=== PATIENT | male | born 1970 | race Caucasian/White ===

== ENCOUNTER 2020-11-18 22:16 | Inpatient (IN) | payer OTHER ==
[~2020-11-18] VITALS: Ht 198.1 cm; Wt 102.0 kg
[~2020-11-18 22:16] MED LIST: ARTANE 2MG TABLE2 MG PO; DIASTAT 2.5 MG2.5 MG PR; IBUPROFEN800 MG PO; ZOFRAN ODT4 MG PO
[2020-11-18 22:41] LABS: HEMOGLOBIN 15.4 gm/dl (14.0-17.5); RED BLOOD COUNT 4.64 M/UL (4.20-5.50); WHITE BLOOD COUNT 7.9 K/UL (4.5-11.0)
[2020-11-18 23:03] LABS: BUN/CREATININE RATIO 17 (0-10)
--- NOTE | 2020-11-19 08:44 | NUR ---
0854 - CALLED CONSULT TO DR. BARTHOLOMEW
[2020-11-19] MEDS ORDERED: IBUPROFEN200 MG PO (15:40)
[2020-11-19 19:52] LABS: HEMOGLOBIN 16.2 gm/dl (14.0-17.5); RED BLOOD COUNT 4.79 M/UL (4.20-5.50); WHITE BLOOD COUNT 7.4 K/UL (4.5-11.0)
[2020-11-19 20:21] LABS: BUN/CREATININE RATIO 14 (0-10)
[2020-11-20 03:56] LABS: RED BLOOD COUNT 4.56 M/UL (4.20-5.50); WHITE BLOOD COUNT 8.5 K/UL (4.5-11.0)
[2020-11-20 04:32] LABS: BUN/CREATININE RATIO 19 (0-10)
[2020-11-20] MEDS ORDERED: BRILINTA 90 MG90 MG PO (10:15)
[2020-11-20] MEDS ORDERED: LISINOPRIL5 MG PO (10:15)
[2020-11-20] MEDS ORDERED: ASPIRIN EC81 MG PO (10:15)
[2020-11-20] MEDS ORDERED: ATORVASTATIN CA20 MG PO (10:15)
[2020-11-20] MEDS ORDERED: LOPRESSOR 25 MG25 MG PO (10:15)
== END 2020-11-20 16:52 | disposition home or self-care (01) | DRG 247 ==
LOC: ER1 22:16 → PROG CARE 23:45 → CDU 23:45 → PROG CARE 11-19 03:32
PROVIDERS: Internal Medicine; Internal Medicine Interventional Cardiology; ADMIT Internal Medicine
PROC: B24BZZ4 Ultrasonography of Heart with Aorta, Transesophageal (ICD-10-PCS; 2020-11-18)
PROC: 027035Z Dilation of Coronary Artery, One Artery with Two Drug-eluting Intraluminal Devices, Percutaneous Approach (ICD-10-PCS; principal; 2020-11-19)
PROC: 4A023N7 Measurement of Cardiac Sampling and Pressure, Left Heart, Percutaneous Approach (ICD-10-PCS; 2020-11-19)
PROC: B2111ZZ Fluoroscopy of Multiple Coronary Arteries using Low Osmolar Contrast (ICD-10-PCS; 2020-11-19)
DX: I21.4 Non-ST elevation (NSTEMI) myocardial infarction (principal); I50.22 Chronic systolic (congestive) heart failure; G89.29 Other chronic pain; E78.5 Hyperlipidemia, unspecified; F17.210 Nicotine dependence, cigarettes, uncomplicated; Z20.822 Contact with and (suspected) exposure to COVID-19; J43.9 Emphysema, unspecified; G40.909 Epilepsy, unspecified, not intractable, without status epilepticus; I25.5 Ischemic cardiomyopathy; M54.9 Dorsalgia, unspecified; M47.896 Other spondylosis, lumbar region; I11.0 Hypertensive heart disease with heart failure; Z79.82 Long term (current) use of aspirin; Z79.01 Long term (current) use of anticoagulants; Z82.49 Family history of ischemic heart disease and other diseases of the circulatory system; Z88.6 Allergy status to analgesic agent
CPT/HCPCS: ECHO; 36415; 71046; 80048; 80053; 80061; 80307; 81001; 82550; 82553; 82962; 83735; 83874; 84484; 85025; 85027; 85347; 85610; 85730; 93005; 93306; 97161; 99152; 99153; 99285; C1725; C1769; C1874; C1887; C9600; J1170; J1644; J2250; J2550; J2930; J3010; J3246; J7040; Q9967; U0002

== ENCOUNTER 2020-12-05 15:12 | Observation (INO) | payer OTHER ==
[~2020-12-05] VITALS: Ht 198.1 cm; Wt 102.1 kg
[~2020-12-05 15:12] MED LIST changes: +ASPIRIN EC81 MG PO; +ATORVASTATIN CA20 MG PO; +BRILINTA 90 MG90 MG PO; +IBUPROFEN200 MG PO; +LISINOPRIL5 MG PO; +LOPRESSOR 25 MG25 MG PO
[2020-12-05 16:39] LABS: HEMOGLOBIN 14.3 gm/dl (14.0-17.5); RED BLOOD COUNT 4.25 M/UL (4.20-5.50); WHITE BLOOD COUNT 6.5 K/UL (4.5-11.0)
[2020-12-05 17:06] LABS: BUN/CREATININE RATIO 15 (0-10)
[2020-12-05] MEDS ORDERED: VENTOLIN HFA 66.7 GM INH (18:47)
[2020-12-05] MEDS ORDERED: NITROGLYCERIN0.4 MG SL (18:49)
--- NOTE | 2020-12-05 23:47 | NUR ---
AT 2240 ON 12/05/20, GINETTE MURRIETA RN AND [place] RAE RN DOUBLE VERIFIED THAT PT WISHES TO BE A FULL CODE. MADE AWARE, STATED "OKAY TO CHANGE IN SYSTEM." WCTM
[2020-12-06 02:23] LABS: HEMOGLOBIN 13.9 gm/dl (14.0-17.5); RED BLOOD COUNT 4.13 M/UL (4.20-5.50); WHITE BLOOD COUNT 7.5 K/UL (4.5-11.0)
[2020-12-06 07:03] LABS: HEMOGLOBIN 13.8 gm/dl (14.0-17.5); RED BLOOD COUNT 4.16 M/UL (4.20-5.50); WHITE BLOOD COUNT 7.1 K/UL (4.5-11.0)
[2020-12-06 07:42] LABS: BUN/CREATININE RATIO 18 (0-10)
--- NOTE | 2020-12-06 09:42 | NUR ---
PATIENT VOMITED X1, NOTIFIED DR. WEST. SHE WILL ENTER ORDERS IN [facility].
[2020-12-06] MEDS ORDERED: TYLENOL W/CODEIN1 E2 GT (12:18)
[2020-12-06] MEDS ORDERED: ZOFRAN ODT 4 MG4 MG GT (12:18)
[2020-12-06] MEDS ORDERED: PLAVIX 75 MG TA75 MG PO (18:14)
== END 2020-12-06 18:25 | disposition home or self-care (01) ==
LOC: ER1 15:12 → CDU 17:38 → M/S 22:04
PROVIDERS: Emergency Medicine; Internal Medicine; ADMIT Internal Medicine
DX: R07.89 Other chest pain (principal); I25.10 Atherosclerotic heart disease of native coronary artery without angina pectoris; I11.0 Hypertensive heart disease with heart failure; I50.20 Unspecified systolic (congestive) heart failure; E78.5 Hyperlipidemia, unspecified; I25.5 Ischemic cardiomyopathy; F17.210 Nicotine dependence, cigarettes, uncomplicated; I25.2 Old myocardial infarction; J44.9 Chronic obstructive pulmonary disease, unspecified; Z95.5 Presence of coronary angioplasty implant and graft; Z79.82 Long term (current) use of aspirin; Z79.899 Other long term (current) drug therapy; Z82.49 Family history of ischemic heart disease and other diseases of the circulatory system; Z20.822 Contact with and (suspected) exposure to COVID-19
CPT/HCPCS: 36415; 71045; 80048; 80053; 82550; 82553; 83735; 83874; 84484; 85025; 85027; 85610; 85730; 93005; 93971; 94664; 94760; 96372; 99285; G0378; J1644; J1650; J2270; U0002

== ENCOUNTER → 2021-01-01 | Outpatient (CLI) | payer OTHER ==
[~2021-01-01] MED LIST changes: +NITROGLYCERIN0.4 MG SL; +PLAVIX 75 MG TA75 MG PO; +TYLENOL W/CODEIN1 E2 GT; +VENTOLIN HFA 66.7 GM INH; +ZOFRAN ODT 4 MG4 MG GT
== END ==
LOC: KOH-I 11:03
DX: M47.22 Other spondylosis with radiculopathy, cervical region (principal)
CPT/HCPCS: 72040

== ENCOUNTER → 2021-01-15 | Outpatient (CLI) | payer OTHER | LOC: HEART 5 14:47 | DX: R06.02 Shortness of breath (principal) | CPT/HCPCS: 94010 ==

== ENCOUNTER → 2021-03-05 | Outpatient (CLI) | payer OTHER | LOC: KOH-I 09:47 | DX: M50.123 Cervical disc disorder at C6-C7 level with radiculopathy (principal); M47.23 Other spondylosis with radiculopathy, cervicothoracic region; M48.02 Spinal stenosis, cervical region | CPT/HCPCS: 72141 ==

== ENCOUNTER → 2021-06-14 | Outpatient (CLI) | payer OTHER | LOC: KOH-I 09:00 | DX: M48.02 Spinal stenosis, cervical region (principal); M50.322 Other cervical disc degeneration at C5-C6 level | CPT/HCPCS: 72125 ==

== ENCOUNTER → 2021-12-31 | Outpatient (CLI) | payer OTHER | LOC: HEART 5 12-05 13:30 → ECHO 11:58 | DX: I25.10 Atherosclerotic heart disease of native coronary artery without angina pectoris (principal); I07.1 Rheumatic tricuspid insufficiency | CPT/HCPCS: ECHO; 93306 ==

== ENCOUNTER → 2022-01-29 | Outpatient (CLI) | payer OTHER | LOC: KOH-I 13:26 | DX: M47.22 Other spondylosis with radiculopathy, cervical region (principal); M48.02 Spinal stenosis, cervical region | CPT/HCPCS: 72141 ==

== ENCOUNTER → 2022-02-10 | Outpatient (CLI) | payer OTHER ==
[~2022-02-10] MED LIST changes: +GABAPENTIN800 MG PO; +HYDROCODON-ACE1 EAC6 PO; +KLONOPIN1 MG PO; +VOLTAREN ARTHRI20 GM TOP
[2022-02-10 11:50] LABS: HEMOGLOBIN 14.4 gm/dl (14.0-17.5); RED BLOOD COUNT 4.24 M/UL (4.20-5.50); WHITE BLOOD COUNT 6.9 K/UL (4.5-11.0)
[2022-02-10 12:24] LABS: BUN/CREATININE RATIO 14 (0-10)
== END ==
LOC: OPSV2 10:00 → EDSTATUS 10:00 → OPSV2 11:00
PROVIDERS: Orthopaedic Surgery
DX: Z01.818 Encounter for other preprocedural examination (principal); M54.12 Radiculopathy, cervical region
CPT/HCPCS: 71046; 80048; 81001; 85027; 87081; 93005

== ENCOUNTER → 2022-02-23 | Outpatient (CLI) | payer OTHER ==
[~2022-02-23] MED LIST changes: +CRESTOR20 MG PO; +PLAVIX75 MG PO; +PROTONIX40 MG PO; +PROZAC20 MG PO; +ROXICODONE TAB 55 MG PO; +STIMULANT LAXA1 EACH PO
[2022-02-23 13:31] LABS: BUN/CREATININE RATIO 16 (0-10)
== END ==
LOC: LAB 12:47
PROVIDERS: Orthopaedic Surgery
DX: Z01.812 Encounter for preprocedural laboratory examination (principal); M54.12 Radiculopathy, cervical region
CPT/HCPCS: 36415; 80048; 85610; 85730; 86850; 86900; 86901

== ENCOUNTER 2022-02-24 05:40 | Day surgery (SDC) | payer OTHER ==
[~2022-02-24] VITALS: Ht 200.7 cm; Wt 93.0 kg
[~2022-02-24 05:40] MED LIST changes: -CRESTOR20 MG PO; -PLAVIX75 MG PO; -PROTONIX40 MG PO; -PROZAC20 MG PO; -ROXICODONE TAB 55 MG PO; -STIMULANT LAXA1 EACH PO
[2022-02-24 13:55] LABS: HEMOGLOBIN 12.5 gm/dl (14.0-17.5); RED BLOOD COUNT 3.74 M/UL (4.20-5.50); WHITE BLOOD COUNT 5.9 K/UL (4.5-11.0)
[2022-02-24 14:18] LABS: BUN/CREATININE RATIO 17 (0-10)
[2022-02-24] MEDS ORDERED: PROZAC20 MG PO (15:50)
[2022-02-24] MEDS ORDERED: PROTONIX40 MG PO (15:51)
[2022-02-25 04:26] LABS: RED BLOOD COUNT 3.95 M/UL (4.20-5.50); WHITE BLOOD COUNT 5.5 K/UL (4.5-11.0)
[2022-02-25 04:59] LABS: BUN/CREATININE RATIO 22 (0-10)
[2022-02-25] MEDS ORDERED: STIMULANT LAXA1 EACH PO (14:41)
[2022-02-25] MEDS ORDERED: CRESTOR20 MG PO (14:41)
[2022-02-25] MEDS ORDERED: PLAVIX75 MG PO (15:02)
[2022-02-25] MEDS ORDERED: ROXICODONE TAB 55 MG PO (15:24)
== END 2022-02-25 16:40 | disposition home or self-care (01) ==
LOC: OR 05:40 → CCU 05:40 → OR 07:30 → CCU 15:05 → OR 02-25 16:40
PROVIDERS: Orthopaedic Surgery
DX: M54.12 Radiculopathy, cervical region (principal); I25.10 Atherosclerotic heart disease of native coronary artery without angina pectoris; I10 Essential (primary) hypertension; E78.5 Hyperlipidemia, unspecified; I25.2 Old myocardial infarction; G89.29 Other chronic pain; M54.9 Dorsalgia, unspecified; J44.9 Chronic obstructive pulmonary disease, unspecified; G47.30 Sleep apnea, unspecified; F41.9 Anxiety disorder, unspecified; F41.0 Panic disorder [episodic paroxysmal anxiety]; F17.200 Nicotine dependence, unspecified, uncomplicated; Z79.899 Other long term (current) drug therapy; Z99.89 Dependence on other enabling machines and devices; Z95.5 Presence of coronary angioplasty implant and graft
CPT/HCPCS: 72040; 72050; 76000; 80048; 85025; 85027; 94760; 97116; 97162; 97166; C1713; C1762; J0690; J1100; J1170; J2001; J2250; J2405; J2704; J2710; J3010; J7040